=== PATIENT | female | born 1965 | race Caucasian/White ===

== ENCOUNTER 2021-04-06 08:45 | Day surgery (SDC) | payer OTHER ==
[~2021-04-06 08:45] MED LIST: Lactated Ringers 1,000 ML IV SCH; Sodium Chloride 0.9% 10 ML Syringe FLUSH PRN
[2021-04-06] MEDS ORDERED: fentaNYL 100 MCG/2 ML SDV ONE (10:30)
[2021-04-06] MEDS ORDERED: Midazolam 1 MG/ML 2 ML SDV ONE (10:30)
[2021-04-06] MEDS ORDERED: Propofol 200 MG/20 ML SDV ONE ×2 (10:31→11:12)
--- NOTE | 2021-04-07 13:31 | OR ---
PREOPERATIVE DIAGNOSIS: Screening colonoscopy. The patient's last colonoscopy was about 30 years ago per patient report. There is no family history of colon cancer. POSTOPERATIVE DIAGNOSES: 1. 2 mm polyp x2 at 20 cm, removed using cold forceps. 2. Minimal sigmoid diverticulosis. 3. Normal-appearing distal ileum. PROCEDURE: Colonoscopy with polypectomy x2 using cold forceps. SURGEON: Cesar Mckeon M.D. ANESTHESIA: Monitored anesthesia care. BOWEL PREP: Good. DESCRIPTION OF PROCEDURE: Frances is a 55-year-old female who was brought to the endoscopy suite after discussing risks and benefits of the procedure. Informed consent was obtained for conscious sedation and colonoscopy with or without biopsy and/or polypectomy. We also discussed possibility of missed lesions. Pre-procedure exam was unremarkable. IV, oxygen, and monitors were placed. The patient was placed in the left lateral decubitus position. Sedation was administered and a digital rectal exam was performed and unremarkable. Colonoscope was passed into the rectum and slowly advanced all the way to the cecum. The patient did have a somewhat tortuous colon which did require some abdominal pressure to obtain cecal intubation. The cecum was viewed and photographed. Ileocecal valve was intubated and distal ileum was normal in appearance. The colonoscope was slowly withdrawn and the mucosa was closed observed in a direct circumferential manner. The ascending colon was unremarkable. The transverse colon was unremarkable. The descending colon was unremarkable. The sigmoid colon was remarkable for some minimal diverticulosis. At about 20 cm, there was noted to be a few scattered hyperplastic-appearing type polyps. Two of these were removed using cold forceps. Retroflexion was performed. Rectal mucosa unremarkable. Scope was removed. The patient tolerated the procedure well. The patient was monitored until that baseline status. Discharge instructions were reviewed and the patient was discharged in good condition. COMPLICATIONS: None. TOTAL TIME: 29 minutes. ESTIMATED BLOOD LOSS: About 1 mL. RECOMMENDATIONS/FOLLOWUP: We will await results of path report to determine ideal followup interval. I would like to kindly thank Marlee Hill for this referral. DMB: 04/06/2021 11:38:13 MODL: 04/06/2021 15:40:39 /[id number]
== END 2021-04-06 12:10 | disposition home or self-care (01) ==
LOC: VM.SDS 08:45
PROVIDERS: ATTEND Family Medicine
DX: Z12.11 Encounter for screening for malignant neoplasm of colon (principal); K63.5 Polyp of colon; K57.30 Diverticulosis of large intestine without perforation or abscess without bleeding; E66.9 Obesity, unspecified; E03.9 Hypothyroidism, unspecified; L65.9 Nonscarring hair loss, unspecified; Z79.899 Other long term (current) drug therapy; Z90.49 Acquired absence of other specified parts of digestive tract; Z98.890 Other specified postprocedural states; Z91.040 Latex allergy status; Z68.31 Body mass index [BMI] 31.0-31.9, adult; Z79.890 Hormone replacement therapy
CPT/HCPCS: 00812; J2250; J2704; J3010; J7120